=== PATIENT | male | born 1965 | race African-American/Black ===

== ENCOUNTER 2021-09-12 18:45 | Emergency (ER) | payer MEDICAID ==
[~2021-09-12] VITALS: Ht 170.2 cm; Wt 82.0 kg
[2021-09-12 21:00] VITALS: BP 140/68
== END 2021-09-12 22:12 | disposition home or self-care (01) ==
LOC: ER 18:45
DX: F10.10 Alcohol abuse, uncomplicated (principal); G43.909 Migraine, unspecified, not intractable, without status migrainosus; F12.10 Cannabis abuse, uncomplicated; F17.210 Nicotine dependence, cigarettes, uncomplicated; Y90.9 Presence of alcohol in blood, level not specified; Z88.0 Allergy status to penicillin
CPT/HCPCS: 93005; 99283